=== PATIENT | male | born 2000 | race Caucasian/White ===

== ENCOUNTER 2018-07-19 21:32 | Emergency (ER) | payer MEDICAID ==
[2018-07-19 21:32] VITALS: BMI 49.1
--- NOTE | 2018-07-19 21:46 | C.PDOC ---
History Of Present Illness Patient presents to the ER with intractable nausea and vomiting since around 2pm this afternoon, no tolerating PO. Unknown etiology. Denies fever or chills. Time Seen by Provider: 07/19/18 21:45 Chief Complaint (Nursing): GI Problem History Per: Patient History/Exam Limitations: no limitations Onset/Duration Of Symptoms: Hrs Current Symptoms Are (Timing): Still Present Severity: Moderate Pain Scale Rating Of: 4 Location Of Pain/Discomfort: Epigastric Radiation Of Pain To:: None Quality Of Discomfort: Unable To Describe Associated Symptoms: Nausea, Vomiting. denies: Fever, Chills Exacerbating Factors: None Alleviating Factors: None Recent travel outside of the [place]: No Past Medical History Reviewed: Historical Data, Nursing Documentation, Vital Signs Vital Signs: Last Vital Signs Temp 97.4 F L 07/19/18 21:38 Pulse 125 H 07/19/18 21:38 Resp 20 07/19/18 21:38 BP 114/84 07/19/18 21:38 Pulse Ox 100 07/19/18 21:38 Family History: States: No Known Family Hx - Social History Hx Alcohol Use: No Hx Substance Use: No - Immunization History Hx Tetanus Toxoid Vaccination: Yes Hx Influenza Vaccination: Yes Hx Pneumococcal Vaccination: Yes Review Of Systems Constitutional: Negative for: Fever, Chills Cardiovascular: Negative for: Chest Pain, Palpitations Respiratory: Negative for: Cough, Shortness of Breath Gastrointestinal: Positive for: Nausea, Vomiting, Abdominal Pain Neurological: Negative for: Weakness, Numbness Physical Exam - Physical Exam Appears: Non-toxic, Other (Slightly anxious) Skin: Warm, Dry Head: Normacephalic Oral Mucosa: Dry Neck: Trachea Midline, Supple Chest: Symmetrical, No Tenderness Cardiovascular: Rhythm Regular Respiratory: No Rales, No Rhonchi, No Wheezing Gastrointestinal/Abdominal: Soft, Tenderness (Mild mid epigastric), No Guarding, No Rebound Neurological/Psych: Oriented x3 ED Course And Treatment - Laboratory Results Result Diagrams: 07/20/18 01:17 07/19/18 21:57 O2 Sat by Pulse Oximetry: 100 (Room air) Pulse Ox Interpretation: Normal Progress Note: Blood work and urinalysis ordered. Protonix, zofran, and IV fluids administered. Reevaluation Time: 01:42 Reassessment Condition: Improved Medical Decision Making Medical Decision Making: Upon provider reevaluation patient is feeling better, is medically stable, and requires no further treatment in the ED at this time. Patient will be discharged home with Rx for zofran and flagyl . Counseling was provided and all questions were answered regarding diagnosis and need for follow up with dr main. There is agreement to discharge plan. Return if symptoms persist or worsen. Disposition Counseled Patient/Family Regarding: Studies Performed, Diagnosis, Need For Followup, Rx Given - Disposition Referrals: Niki Main MD [Medical Doctor] - Disposition: HOME/ ROUTINE Disposition Time: 21:46 Condition: FAIR Additional Instructions: Please return if symptoms recur Prescriptions: Metronidazole [Flagyl] 500 mg PO TID #21 tablet Ondansetron ODT [Zofran ODT] 1 odt PO BID PRN #6 odt PRN Reason: Nausea/Vomiting Instructions: Acute Abdomen (Belly Pain), Adult (DC), Nausea and Vomiting, Adult (DC) Forms: [facility] ([place]), School Excuse - Clinical Impression Clinical Impression: Abdominal pain, Nausea & vomiting - Scribe Statement The provider has reviewed the documentation as recorded by the Scribkatia Croft All medical record entries made by the Crystalibkatia were at my direction and personally dictated by me. I have reviewed the chart and agree that the record accurately reflects my personal performance of the history, physical exam, medical decision making, and the department course for this patient. I have also personally directed, reviewed, and agree with the discharge instructions and disposition.
[2018-07-19] MEDS ORDERED: Sodium Chloride 0.9% 2,000 ML IV ONE (21:48)
[2018-07-19 22:06] LABS: BASO % 0.2 % (0.0-2.0); HEMOGLOBIN 17.7 g/dL (12.0-18.0); LYMPH # 0.4 K/uL (1.0-4.3); LYMPH % 2.9 % (20.0-40.0); MEAN CELL VOLUME 87.9 fL (80.0-94.0); MEAN CORPUSCULAR HEMOGLOBIN 29.4 pg (27.0-31.0); MEAN CORPUSCULAR HGB CONC 33.5 g/dL (33.0-37.0); MEAN PLATELET VOLUME 8.4 fL (7.2-11.7); MONO # 0.7 K/uL (0.0-0.8); MONO % 4.7 % (0.0-10.0); NEUT # 12.8 K/uL (1.8-7.0); NEUT % 92.2 % (50.0-75.0); PLATELET COUNT 277 K/uL (130-400); RBC 6.01 Mil/uL (4.40-5.90); RED CELL DISTRIBUTION WIDTH 13.4 % (11.5-14.5); WHITE BLOOD COUNT 13.9 K/uL (4.8-10.8)
[2018-07-19] MEDS ORDERED: Sodium Chloride 0.9% 1,000 ML ONE (22:13)
[2018-07-19 22:27] LABS: ALB/GLOB RATIO 1.5 (1.0-2.1); ALBUMIN 5.2 g/dL (3.5-5.0); ALT/SGPT 29 U/L (21-72); AST/SGOT 35 U/L (17-59); BLOOD UREA NITROGEN 20 mg/dL (9-20); CALCIUM 10.2 mg/dl (8.6-10.4); GFR NON-AFRICAN AMERICAN > 60; LIPASE 29 U/L (23-300)
[2018-07-19 22:28] LABS: BANDS 17 % (0-2); LYMPHOCYTE 1 % (20-40); MONOCYTE 2 % (0-10); NEUTROPHIL 80 % (50-75); TOTAL CELLS COUNTED 100
[2018-07-19 22:29] LABS: HYPOCHROMIC SLIGHT; MICROCYTOSIS SLIGHT; PLATELET ESTIMATE NORMAL (NORMAL); TEARDROP CELLS SLIGHT
[2018-07-19] MEDS ORDERED: Piperacillin/Tazobact 3.375 gm 100 ML IVPB STA (22:40)
[2018-07-19] MEDS ORDERED: metroNIDAZOLE IV 500 mg/100 ml 500 MG/100 ML BAG IVPB SCH (22:45)
[2018-07-19] MEDS ORDERED: Iohexol 300 100 ML IJ ONE (22:49)
[2018-07-19 22:57] LABS: VENOUS BLOOD GAS BASE EXCESS 1.8 mmol/L (0.0-2.0); VENOUS BLOOD GAS PCO2 22 mmHg (40-60); VENOUS BLOOD GAS PO2 30 mm/Hg (30-55)
[2018-07-19] MEDS ORDERED: Sodium Chloride 0.9% 1,000 ML IV ONE (22:58)
[2018-07-19] MEDS ORDERED: Piperacillin/Tazobact 3.375 gm 100 ML IVPB ONE (22:59)
[2018-07-19 23:14] LABS: SQUAMOUS EPITHIAL < 1 /hpf (0-5); URINE BILIRUBIN NEGATIVE (NEGATIVE); URINE BLOOD NEGATIVE (NEGATIVE); URINE CLARITY Hazy (Clear); URINE COLOR Yellow (YELLOW); URINE GLUCOSE (UA) NORMAL (Normal); URINE LEUKOCYTE ESTERASE NEG Leu/uL (Negative); URINE PROTEIN 2+ mg/dL (NEGATIVE)
[2018-07-20 00:43] VITALS: RESP 16
[2018-07-20 01:20] LABS: BASO % 0.1 % (0.0-2.0); LYMPH # 0.5 K/uL (1.0-4.3); LYMPH % 4.6 % (20.0-40.0); MEAN CELL VOLUME 87.2 fL (80.0-94.0); MEAN CORPUSCULAR HEMOGLOBIN 29.8 pg (27.0-31.0); MEAN CORPUSCULAR HGB CONC 34.2 g/dL (33.0-37.0); MEAN PLATELET VOLUME 8.2 fL (7.2-11.7); MONO # 0.4 K/uL (0.0-0.8); MONO % 3.9 % (0.0-10.0); NEUT # 9.7 K/uL (1.8-7.0); NEUT % 91.4 % (50.0-75.0); RBC 4.97 Mil/uL (4.40-5.90); RED CELL DISTRIBUTION WIDTH 13.4 % (11.5-14.5); WHITE BLOOD COUNT 10.6 K/uL (4.8-10.8)
[2018-07-20 01:39] LABS: VENOUS BLOOD GAS BASE EXCESS 0.1 mmol/L (0.0-2.0); VENOUS BLOOD GAS PCO2 34 mmHg (40-60); VENOUS BLOOD GAS PO2 34 mm/Hg (30-55); VENOUS BLOOD PH 7.45 (7.32-7.43)
[2018-07-20 01:43] VITALS: TEMP 100.8
[2018-07-20 01:55] VITALS: BP 108/79; PULSE 86; O2SAT 99
[2018-07-20 07:25] LABS: HEMOGLOBIN 14.8 g/dL (12.0-18.0)
--- NOTE | 2018-07-20 10:12 | CT ---
Date of service: 07/19/2018 PROCEDURE: CT Abdomen and pelvis.. HISTORY: Abdominal pain, n/v/bandemia COMPARISON: No prior study available comparison TECHNIQUE: Contiguous axial images of the abdomen and pelvis performed following intravenous injection of approximately 100 cc Visipaque 320 contrast material. Additional 2D sagittal and coronal reformats generated. Radiation dose: Total exam DLP = 243.03 mGy-cm. This CT exam was performed using one or more of the following dose reduction techniques: Automated exposure control, adjustment of the mA and/or kV according to patient size, and/or use of iterative reconstruction technique. FINDINGS: LOWER THORAX: Lung bases are free of focal consolidation. There may be some minimal linear scarring in the anterior medial segment right middle lobe. No infiltrate effusion or basilar pneumothorax. Heart size is within range of normal. No significant pericardial effusion. Small hiatal hernia.. LIVER: Liver exhibits relatively normal size measuring just over 15 cm in CC dimension. No obvious hepatic masses collections or calcifications. Portal and splenic veins are opacified. GALLBLADDER AND BILE DUCTS: Gallbladder physiologically distended. No evidence of intraluminal gallbladder calculi. PANCREAS: Pancreas appears grossly unremarkable. No obvious pancreatic masses collections or calcifications, collections or calcifications.. SPLEEN: Spleen exhibits normal size and attenuation pattern without mass collection or calcification. ADRENALS: There are no adrenal lesions. KIDNEYS AND URETERS: Unremarkable. No stone or hydronephrosis. BLADDER: The urinary bladder incompletely distended which in part accounts for thick-walled appearance. Muscular hypertrophy may contribute however correlation with urinalysis recommended to exclude cystitis REPRODUCTIVE: Unremarkable as visualized APPENDIX: Unremarkable. BOWEL: Evaluation of the bowel is somewhat limited due to the lack of oral contrast material. There are multiple fluid-filled loops of small bowel seen in the upper-mid the abdomen some of which are minimally distended. Findings may represent a mild localized ileus or possibly mild enteritis. No definitive colonic wall thickening PERITONEUM: Unremarkable. No fluid collection. No free air. LYMPH NODES: Unremarkable. No enlarged lymph nodes.. VASCULATURE: Unremarkable. No aortic aneurysm. No significant aortic atherosclerotic calcification or mural plaque present. BONES: No fracture or destructive lesion. OTHER FINDINGS: None. IMPRESSION: Findings suggest mild ileus or enteritis. Clinical correlation recommended.. Mild bladder wall thickening likely due to incomplete distention however cystitis should be excluded with followup urinalysis.
== END 2018-07-20 01:54 | disposition home or self-care (01) ==
LOC: C.ER 21:32
DX: R10.9 Unspecified abdominal pain (principal); R11.2 Nausea with vomiting, unspecified
CPT/HCPCS: 74177; 80053; 81001; 82803; 83690; 85025; 87086; 96365; 96375; 99284; C9113; J2405; J2543; J7030; Q9967